=== PATIENT | female | born 1995 | race African-American/Black ===

== ENCOUNTER 2018-08-06 16:47 | Emergency (ER) | payer MEDICAID ==
[~2018-08-06] VITALS: Ht 160 cm; Wt 68.0 kg
[2018-08-06] MEDS ORDERED: SODIUM CHLORIDE 0.9% 1,000 ML IV ONE (17:14)
[2018-08-06 17:45] LABS: EOSINOPHILS % 0.6 % (0.0-5.0); HEMATOCRIT. 40.7 % (36.0-48.0); HEMOGLOBIN. 13.2 g/dL (12.0-16.0); LYMPHOCYTES % 35.8 % (20.0-50.0); MEAN CORPUSCULAR HEMOGLOBIN 25.6 pg (28.0-32.0); MEAN CORPUSCULAR VOLUME 78.8 fL (81.0-99.0); MEAN PLATELET VOLUME 9.9 fl (7.4-10.4); NEUTROPHILS % 51.6 % (40.0-76.0); PLATELET 216 x1000/uL (130-400); RED BLOOD CELL COUNT 5.17 mill/uL (4.2-5.4); RED CELL DISTRIBUTION WIDTH 15.1 % (11.6-14.6)
[2018-08-06] MEDS ORDERED: HYDROCODONE/ACETAMINOPHEN 5/325MG TABLET PO ONE (17:45)
[2018-08-06 17:49] LABS: CHLORIDE 111 mEq/L (98-107)
[2018-08-06 17:50] LABS: PARTIAL THROMBOPLASTIN TIME 28.7 sec (23.4-31.0); PROTHROMBIN TIME 10.3 sec (9.6-11.0)
[2018-08-06 18:16] LABS: CLARITY URINE CLEAR (CLEAR); COLOR URINE YELLOW (YELLOW); KETONES URINE NEGATIVE (NEGATIVE); LEUKOCYTE ESTERASE URINE NEGATIVE (NEGATIVE); NITRITE URINE NEGATIVE (NEGATIVE); OCCULT BLOOD URINE 1+ (NEGATIVE); PROTEIN URINE NEGATIVE (NEGATIVE); SPECIFIC GRAVITY URINE 1.012 (1.005-1.030); UROBILINOGEN URINE 0.2 E.U./dL (0.2-1.0)
[2018-08-06 18:25] LABS: HCG SCREEN NEGATIVE
[2018-08-06] MEDS ORDERED: IOHEXOL-300 100 ML BOTTLE ONE (18:51)
[2018-08-06 19:45] VITALS: BP 103/66
== END 2018-08-06 20:32 | disposition home or self-care (01) ==
LOC: ER 16:47
DX: S46.912A Strain of unspecified muscle, fascia and tendon at shoulder and upper arm level, left arm, initial encounter (principal); R10.12 Left upper quadrant pain; Z88.0 Allergy status to penicillin; V49.88XA Car occupant (driver) (passenger) injured in other specified transport accidents, initial encounter; Y93.89 Activity, other specified; Y92.89 Other specified places as the place of occurrence of the external cause; Y99.8 Other external cause status
CPT/HCPCS: 36415; 71045; 74177; 80053; 81003; 81025; 83690; 84703; 85025; 85610; 85730; 86850; 86900; 86901; 99284; J7030; Q9967

== ENCOUNTER 2018-08-15 10:47 | Emergency (ER) | payer MEDICAID ==
[~2018-08-15] VITALS: Ht 160 cm; Wt 68.0 kg
[2018-08-15] MEDS ORDERED: KETOROLAC 60MG/2ML VIAL IM NR (13:26)
[2018-08-15 14:52] VITALS: BP 119/72
[2018-08-15 15:53] LABS: CLARITY URINE CLOUDY (CLEAR); COLOR URINE DARK YELLOW (YELLOW); KETONES URINE NEGATIVE (NEGATIVE); LEUKOCYTE ESTERASE URINE NEGATIVE (NEGATIVE); NITRITE URINE NEGATIVE (NEGATIVE); OCCULT BLOOD URINE NEGATIVE (NEGATIVE); PROTEIN URINE NEGATIVE (NEGATIVE); SPECIFIC GRAVITY URINE 1.022 (1.005-1.030); UROBILINOGEN URINE 0.2 E.U./dL (0.2-1.0)
== END 2018-08-15 14:52 | disposition home or self-care (01) ==
LOC: ER 10:47
DX: M54.5 Low back pain (principal); Z88.0 Allergy status to penicillin
CPT/HCPCS: 81003; 81025; 96372; 99283; J1885